=== PATIENT | male | born 1980 | race Two or more races ===

== ENCOUNTER 2019-03-25 02:51 | Emergency (ER) | payer SELFPAY ==
[~2019-03-25] VITALS: Ht 165.1 cm; Wt 63.5 kg
--- NOTE | 2019-03-25 03:05 | NUR ---
Note undone in EDM - 03/25/19 at 0338 by EVICTOR PT BIB SELF. AAOX4. ABLE TO AMBULATE. C/O L SIDED CHEST PAIN SINCE 1800. PER PATIENT "I FELL ON THE FLOOR, HIT MY HEAD, AND LOST CONTIOUS FOR TEN SECONDS." PT BREATHIGN EVEN AND UNLABORED. PT PLACED ON CONTINIOUS CARDIAC MONITORING AND PULSE OX. NO ACUTE DISTRESS NOTED.
--- NOTE | 2019-03-25 03:05 | NUR ---
PT BIB SELF. AAOX4. ABLE TO AMBULATE. C/O L SIDED CHEST SHARP PAIN 11/07. PER PATIENT "I FELL ON THE FLOOR, HIT MY HEAD, AND LOST CONTIOUS FOR TEN SECONDS." PT BREATHIGN EVEN AND UNLABORED. PT PLACED ON CONTINIOUS CARDIAC MONITORING AND PULSE OX. NO ACUTE DISTRESS NOTED.
[2019-03-25 03:32] LABS: BASOPHILS # (AUTO) 0.1 /CMM (0.0-0.2); BASOPHILS % (AUTO) 0.6 % (0.0-2.0); EOSINOPHILS % (AUTO) 2.8 % (0.0-6.0); HEMATOCRIT 44 % (39-51); HEMOGLOBIN 14.2 g/dL (13.5-17.5); LYMPHOCYTES # (AUTO) 2.3 /CMM (0.8-4.8); LYMPHOCYTES % (AUTO) 23.1 % (20.0-44.0); MEAN CORPUSCULAR HGB CONC 33 g/dl (31.0-36.0); MEAN CORPUSCULAR VOLUME 88 fL (80-96); MONOCYTES # (AUTO) 0.7 /CMM (0.1-1.30); MONOCYTES % (AUTO) 7.3 % (2.0-12.0); NEUTROPHILS # (AUTO) 6.6 /CMM (1.8-8.9); NEUTROPHILS % (AUTO) 66.2 % (43.0-81.0); PLATELET COUNT (AUTO) 312 /CMM (150-450); RED BLOOD CELL COUNT(AUTO) 4.95 MIL/uL (4.5-6.0)
[2019-03-25 03:39] LABS: CALCIUM, SERUM 8.8 mg/dL (8.5-10.1); CARBON DIOXIDE 27 mmol/L (21-32); CHLORIDE 104 mmol/L (98-107); CREATININE 0.9 mg/dL (0.6-1.3); GLUCOSE 96 mg/dL (74-106); POTASSIUM 3.8 mmol/L (3.5-5.1); SODIUM SERUM 139 mmol/L (136-145); UREA NITROGEN, BLOOD 13 mg/dL (7-18)
--- NOTE | 2019-03-25 04:51 | NUR ---
Patient discharged to home in stable condition. Written and verbal after care instructions given. Patient verbalizes understanding of instruction. PT ambulatory with a steady gait.
[2019-03-25 04:53] VITALS: BP 129/81
== END 2019-03-25 04:53 | disposition home or self-care (01) ==
LOC: ER 02:54
DX: R55 Syncope and collapse (principal); R07.89 Other chest pain
CPT/HCPCS: 36415; 71045-TC; 80048-TC; 84484-TC; 85025-TC